=== PATIENT | male | born 1980 | race American Indian/Alaskan Native ===

== ENCOUNTER 2018-03-11 19:04 | Emergency (ER) | payer OTHER ==
[2018-03-11 19:59] VITALS: BMI 27.5
[2018-03-11 20:00] VITALS: O2SAT 99
--- NOTE | 2018-03-11 21:05 | ED PDOC ---
Lower Extremity Pain/Injury Time Seen by Provider: 03/11/18 20:27 Chief Complaint (Nursing): Lower Extremity Problem/Injury Chief Complaint (Provider): Lower Extremity Problem/Injury History Per: Patient History/Exam Limitations: no limitations Onset/Duration Of Symptoms: Hrs Current Symptoms Are (Timing): Still Present Additional Complaint(s): 37 y/o male presents to the ED for evaluation of right leg and foot pain. Patient states last Sunday/Sunday morning, he was riding a skateboard while intoxicated and fell. Patient reports since fall, he has been experiencing right knee and right great toe pain. Patient reports of taking Ibuprofen for symptom relief. However, patient reports he did not take any today. Patient states he initially thought symptoms would improve but pain persisted. Patient states toe pain is greater than knee pain. Otherwise: (-) head injury, (-) loss of consciousness PMD: None Provided Tetanus vaccination up to date. Past Medical History Reviewed: Historical Data, Nursing Documentation, Vital Signs Vital Signs: Last Vital Signs Temp 98.8 F 03/11/18 19:56 Pulse 94 H 03/11/18 19:56 Resp 16 03/11/18 19:56 BP 118/67 03/11/18 19:56 Pulse Ox 99 03/11/18 19:57 - Medical History PMH: No Chronic Diseases - Surgical History Surgical History: No Surg Hx - Family History Family History: States: Unknown Family Hx - Immunization History Hx Tetanus Toxoid Vaccination: Yes - Home Medications Home Medications: Ambulatory Orders Medication Instructions Recorded Ibuprofen [Motrin Tab] 600 mg PO Q6 PRN #20 tab 03/11/18 - Allergies Allergies/Adverse Reactions: Allergies Allergy/AdvReac Type Severity Reaction Status Date / Time No Known Allergies Allergy Verified 03/11/18 19:57 Review of Systems ROS Statement: Except As Marked, All Systems Reviewed And Found Negative Musculoskeletal: Positive for: Leg Pain (right knee), Foot Pain (right great toe ) Physical Exam - Reviewed Nursing Documentation Reviewed: Yes Vital Signs Reviewed: Yes - Physical Exam Comments: GENERAL APPEARANCE: Patient is resting comfortably, playing on cell phone, awake , alert, oriented x 3, in no acute distress. SKIN: Warm, dry; (-) cyanosis. LOWER EXTREMITY: Knee: (+) Superficial scabbed abrasions to the anterior right knee noted. (-) effusion, (-) erythema, (+) Full ROM, (-) instability on valgus or vargus stress, (-) anterior and posterior draw sign. Foot: (+) diffuse tenderness and swelling to the right great toe. (+) tenderness over the distal first metatarsal. CHEST AND RESPIRATORY: (-) rales, (-) rhonchi, (-) wheezes; breath sounds equal bilaterally. HEART AND CARDIOVASCULAR: (-) irregularity; (-) murmur, (-) gallop. (+) distal pulse. NEUROLOGIC: (+) distal sensation. - ECG O2 Sat by Pulse Oximetry: 99 (RA) Pulse Ox Interpretation: Normal Medical Decision Making Medical Decision Making: Time: 2039 Impression: Skin abrasion, acute knee and toe pain s/p fall Plan: -- Motrin 800 mg PO -- Foot Right 3 Views XR -- Re-evaluation 2154 XR reviewed (-) fracture (-) dislocation Patient advised that official radiology read of XR is still pending and will call the patient if there is any discrepancy within 24 hours. Consult placed to podiatry. Case discussed with podiatry residentDavida. Agreeable to evaluation in ED. 2300 Podiatry at bedside. See consult note. 2320 Surgical shoe applied by podiatry. Patient to follow up in podiatry clinic. On re-evaluation, patient reports improvement of symptoms. On exam, patient remains AAOx3, in no acute distress. On exam, neck is supple, lungs CTA, cardiac RRR, neuro exam shows no focal findings. VSS, stable for discharge. Diagnostic results d/w the patient in great detail. Dx of acute toe and knee pain s/p fall d/w the patient. Based on history, exam and diagnostic results plan will be for discharge and outpatient follow up. AARON encouraged. Advised to follow up with primary care physician/clinic in 1-2 days without fail. Advised to take medication as prescribed. Return to the emergency room at any time for any new or worsening symptoms. Patient states he fully agrees with and understands discharge instructions. States that he agrees with the plan and disposition. Verbalized and repeated discharge instructions and plan. I have given the patient opportunity to ask any additional questions. Scribe Attestation: Documented by Meghna Valerio, acting as a scribe for Annalee Dowling PA-C. Provider Scribe Attestation: All medical record entries made by the Scribe were at my direction and personally dictated by me. I have reviewed the chart and agree that the record accurately reflects my personal performance of the history, physical exam, medical decision making, and the department course for this patient. I have also personally directed, reviewed, and agree with the discharge instructions and disposition. Disposition - Clinical Impression Clinical Impression: Toe pain, Knee pain, Fall from skateboard - Patient ED Disposition Is Patient to be Admitted: No Counseled Patient/Family Regarding: Studies Performed, Diagnosis, Need For Followup, Rx Given - Disposition [facility]errals[facility]Outside[facility] [Outside] Disposition: Routine/Home Disposition Time: 23:22 Condition: STABLE Additional Instructions: The emergency medical care you received today was directed at your acute symptoms. If you were prescribed any medication, please fill it and take as directed. It may take several days for your symptoms to resolve. Return to the Emergency Department if your symptoms worsen, do not improve, or if you have any other problems. Please contact your doctor in 2 days for re-evaluation and follow up / or call one of the physicians/clinics you have been referred to that are listed on the Patient Visit Information form that is included in your discharge packet. Bring any paperwork you were given at discharge with you along with any medications you are taking to your follow up visit. Our treatment cannot replace ongoing medical care by a primary care provider (PCP) outside of the emergency department. Prescriptions: Ibuprofen [Motrin Tab] 600 mg PO Q6 PRN #20 tab PRN Reason: Pain, Moderate (4-7) Instructions: Knee Pain (DC), Muscle and Bone Pain (DC) Forms: [employer] (Belgian) Print Language: NEPALESE - POA Present On Arrival: Falls Or Trauma
[2018-03-11 23:38] VITALS: BP 122/70; PULSE 71; RESP 18; TEMP 98
--- NOTE | 2018-03-12 00:56 | CP.PCM.CON ---
History of Present Illness - History of Present Illness History of Present Illness: Podiatry Consult note: Dr. Karimi 37 year old male with no significant PMHx was seen and evaluated for right hallux injury. Patient reports that he was skateboarding late Sunday night/ early Sunday morning while being intoxicated when he ended up hurting his toe. Patient reports that since the injry he has been walking on the foot with moderate pain. Patient reports that the pain level has stayed the same but the swelling has increased; which led his decision to come to the ED today. Reports that he took Motrin at home which helped him with the pain. Patient denies of any other treatment prior to coming to the ED today. Denies of having recent F/N /V/C/SOB/CP/headache. Patient denies of any other pedal complains at this time. PMHx: Denies PSHx: Denies Allergies: N.K.D.A SHx: denies smoking, reports occasional EtOH use, denies illicit drug usage; works as a social services in [employer] Review of Systems - Constitutional Constitutional: As Per HPI Past Patient History - Past Social History Smoking Status: Light Smoker < 10 Cigarettes Daily - PSYCHIATRIC Hx Substance Use: No Meds Home Medications: Home Medication List Medication Instructions Recorded Confirmed Type Ibuprofen [Motrin Tab] 600 mg PO Q6 PRN #20 tab 03/11/18 Rx Allergies/Adverse Reactions: Allergies Allergy/AdvReac Type Severity Reaction Status Date / Time No Known Allergies Allergy Verified 03/11/18 19:57 Physical Exam - Constitutional Appears: Well, Non-toxic, No Acute Distress - Extremities Exam Additional comments: Right LE focused exam VASC: DP/PT pulses are palpable 2/4, Cap refill time: < 3 sec to all digits, Temp gradient: warm to cool from proximal to distal, localized non-pitting edema noted on the right hallux DERM: no open lesions, no subungual hematoma, no active drainage, no clinical suspicion of active infection NEURO: Protective sensation grossly intact ORTHO: AROM of the hallux intact at the MTPJ with no pain, mild pain during PROM of the hallux at the MTPJ, no pain on palpation of the metatarsal heads, no pain during palpation of the sesamoids, pain present during palpation of the dorsum of the proximal phalanx, no pain during palpation and ROM of the distal phalanx of the hallux - Neurological Exam Neurological exam: Alert, Oriented x3 - Psychiatric Exam Psychiatric exam: Normal Affect, Normal Mood Results - Vital Signs Recent Vital Signs: Last Vital Signs Temp 98 F 03/11/18 23:37 Pulse 71 03/11/18 23:37 Resp 18 03/11/18 23:37 BP 122/70 03/11/18 23:37 Pulse Ox 99 03/11/18 23:37 Assessment & Plan - Assessment and Plan (Free Text) Assessment: 37 year old male with no significant PMHx was evaluated for right hallux pain s/ p fall while being intoxicated Plan: Patient seen and evaluated Patient discussed in details with attending Dr. Karimi X-rays of the right foot ordered/reviewed - no acute fractures or dislocations noted; increase in soft tissue density consistent with soft tissue edema Kiko splint applied to the hallux and 2nd digit with STEPHANIE bandage to the RLE Surgical shoe provided - RLE placed in the shoe Educated patient to remain in the surgical shoe at all times during WB Educated patient to limit physical activity Educated patient of the RICE protocol Educated patient to take Motrin for the pain if needed Educated patient to follow up with Dr. Karimi in his office without any fail Patient demonstrated verbal understanding of the plan Thank you for the podiatry consult and allowing to take part in patient care - Date & Time Date: 03/11/18 Time: 21:00
--- NOTE | 2018-03-12 10:48 | RAD ---
Date of service: 03/11/2018 PROCEDURE: Right Foot Radiographs. HISTORY: s/p fall from skateboard, 1st toe injury COMPARISON: None. FINDINGS: BONES: Bone alignment and mineralization are normal. There is no acute displaced fracture or bone destruction. 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 SOFT TISSUES: Normal. OTHER FINDINGS: None. IMPRESSION: No acute displaced fracture or dislocation.
== END 2018-03-11 23:37 | disposition home or self-care (01) ==
LOC: H.ER 19:04
DX: M79.674 Pain in right toe(s) (principal); V00.131A Fall from skateboard, initial encounter; Y93.51 Activity, roller skating (inline) and skateboarding